=== PATIENT | male | born 1995 | race Caucasian/White ===

== ENCOUNTER 2018-10-24 12:02 | Emergency (ER) | payer OTHER, SELFPAY ==
[2018-10-24 12:03] VITALS: BP 137/87; PULSE 79; RESP 17; TEMP 37.1; O2SAT 97; BMI 34.1
--- NOTE | 2018-10-24 12:13 | RAD_ITS ---
STUDY: X-RAY - RIGHT HAND, ATTENTION INDEX FINGER REASON FOR EXAM: Male, 22 years old. Crushing injury to the distal aspect of the index finger with the bleeding. TECHNIQUE: 3 view(s) of the finger were obtained. COMPARISON: None. FINDINGS: Normal metacarpal head. Normal metacarpophalangeal joint. Normal proximal phalanx. Normal middle phalanx. Nondisplaced comminuted fracture of the tuft of the distal phalanx of the index finger with overlying soft tissue injury. Normal proximal interphalangeal joint. Normal distal interphalangeal joint. RAD/Finger(s) Min 2 Views IMPRESSION: Nondisplaced comminuted fracture of the distal tuft of the distal phalanx with overlying soft tissue injury. Electronically Signed: Hawk Carrasco, at 12:42 EDT , Service support ,
--- NOTE | 2018-10-24 12:14 | ED.VISSUMM ---
- ER Visit Summary Date of Service: 10/24/18 Chief Complaint: Finger injury History of Present Illness: The patient is a 22 M with a crush injury over the right index digit at work just prior to arrival. No other injury. Physical Examination: Otherwise normal exam there is a crush injury over the tuft of the distal phalanx. There is a nail and nailbed involvement, the nail is partially avulsed but is still resting on the nailbed in anatomic position. No tendon dysfunction. Emergency Department Course and Treatment: Patient is found to have a tuft fracture, by definition this is an open fracture. Ancef IM was given, patient will be placed on antibiotics he will follow-up with hand as well as employee health. He is told that his nail will fall out in either few days or 1 to 2 weeks, otherwise he needs wound care and follow-up he understands this. Tetanus was updated. Disposition: Discharge stable condition Impression: Open tuft fracture This note was generated with Pen[employer] dictation software. It may contain incorrect words, spelling, and punctuation that were not noted in review of the chart prior to signing ED Disposition - Plan for ED Patient: Disposition: Home or Assisted Living Instructions: ED Fx Finger Open Prescriptions: Cephalexin [Keflex] 500 mg PO [id number] #36 cap Referrals: Michele Larkin MD [STAFF PHYSICIAN] - 2 Days Additional Instructions: If you are unable to follow-up with plastic surgery return to the emergency department, he must follow-up in the next 3 to 4 days. Make sure you take all your antibiotics.
--- NOTE | 2018-10-24 12:19 | ED.DCSUM_ITS ---
- ER Visit Summary Date of Service: 10/24/18 Chief Complaint: Finger injury History of Present Illness: The patient is a 22 M with a crush injury over the right index digit at work just prior to arrival. No other injury. Physical Examination: Otherwise normal exam there is a crush injury over the tuft of the distal phalanx. There is a nail and nailbed involvement, the nail is partially avulsed but is still resting on the nailbed in anatomic position. No tendon dysfunction. Emergency Department Course and Treatment: Patient is found to have a tuft fracture, by definition this is an open fracture. Ancef IM was given, patient will be placed on antibiotics he will follow-up with hand as well as employee health. He is told that his nail will fall out in either few days or 1 to 2 weeks, otherwise he needs wound care and follow-up he understands this. Tetanus was updated. Disposition: Discharge stable condition Impression: Open tuft fracture This note was generated with [employer] dictation software. It may contain incorrect words, spelling, and punctuation that were not noted in review of the chart prior to signing ED Disposition - Plan for ED Patient: Disposition: Home or Assisted Living Instructions: ED Fx Finger Open Prescriptions: Cephalexin [Keflex] 500 mg PO [id number] #36 cap Referrals: Michele Larkin MD [STAFF PHYSICIAN] - 2 Days Additional Instructions: If you are unable to follow-up with plastic surgery return to the emergency department, he must follow-up in the next 3 to 4 days. Make sure you take all your antibiotics.
[2018-10-24] MEDS: Diphth,Pertuss(Acell),Tet Vac 0.5 ML Vial IM (12:35)
[2018-10-24 13:51] VITALS: BP 134/87; PULSE 88; RESP 16
== END 2018-10-24 13:53 | disposition home or self-care (01) ==
PROVIDERS: Emergency Provider Emergency Medicine
DX: S62.630B Displaced fracture of distal phalanx of right index finger, initial encounter for open fracture (principal); X58.XXXA Exposure to other specified factors, initial encounter; Y93.9 Activity, unspecified; Y92.9 Unspecified place or not applicable
CPT/HCPCS: 73140; 90715; 96372; 99284

== ENCOUNTER 2018-11-12 08:18 | Day surgery (SDC) | payer OTHER, SELFPAY ==
[2018-11-07 14:05] VITALS: BMI 32.8
--- NOTE | 2018-11-11 22:46 | HP.PCM_ITS ---
History and Physical Date of Admission: 11/12/18 HISTORY OF PRESENT ILLNESS 22 year old man presents with a crush injury right index finger that he sustained at work on 10/24/18. He went to the ED for evaluation. X-ray showed a nondisplaced comminuted fracture distal tuft of distal phalanx. The nail was partially avulsed. There was the presence of a subungual hematoma and associated nail bed injury. He was given a dose of IV Ancef. The right index finger was cleansed and splinted. He was discharged on Keflex. When I saw him last week, I changed his antibiotics to Doxycycline. At present, he has a low grade fever. He is back to work and doing light duty with restrictions that include no machines, one handed work, and no lifting. Patient is right hand dominant. I had recommended operative intervention for his injuries and the surgery has been approved by [facility]. He is scheduled for 11/12/18. PAST MEDICAL HISTORY None PAST SURGICAL HISTORY None ALLERGIES No Known Allergies MEDICATIONS doxycycline hyclate FAMILY HISTORY Arthritis SOCIAL HISTORY Smoking Status: Never smoker alcohol intake: never substance use type: does not use REVIEW OF SYSTEMS General - Denies fever, fatigue, and weight loss. Eyes - Denies cataracts and glaucoma. ENT - Denies nasal congestion and sore throat. Endocrine - Denies excessive thirst and urination. Skin - Denies suspicious lesions and skin cancer. Musculoskeletal - Denies joint pain, joint stiffness, weakness of muscles and joints, back pain, and arthritis. Has a distal tuft fracture distal phalanx right index finger with subungual hematoma and nail bed injury. Neuro - Denies headaches. Cardiovascular - Denies chest pain, fatigue, and shortness of breath with exertion. Psych - Denies anxiety and depression. Respiratory - Denies chronic cough and shortness of breath. Gastrointestinal - Denies nausea, vomiting, diarrhea, and constipation. Hematologic - Denies abnormal bruising and bleeding. Genitourinary - Denies hematuria and urinary frequency. PHYSICAL EXAMINATION General - Alert and Oriented. HEENT - PERRL. EOMI. Throat is clear. Neck - Supple and nontender. No cervical adenopathy. Lungs - Clear to auscultation. Heart - Regular rate and rhythm. Abdomen - Soft and nondistended. Extremities - FROM right upper extremity except for the index finger where he sustained a crush injury and associated distal phalanx fracture and nail bed injury. There is a subungual hematoma present. There is injury to eponychial fold. Tip is tender to palpation. He is able to flex and extend his finger with some limitation secondary to swelling. No axillary adenopathy. Radial pulses are palpable. Fingers are warm with good capillary refill. Patient is right hand dominant. Tip of index finger has decreased sensation to pin prick. Neuro - CN II-XII grossly intact. Psych - Normal mood and affect. ASSESSMENT 1. Nondisplaced comminuted open fracture distal tuft of distal phalanx right index finger. 2. Subungual hematoma right index finger. 3. Nail bed injury right index finger. 4. Crush injury right index finger. PLAN Continue the tip splint. Continue Doxycycline since there is increased risk of osteomyelitis. Recommend operative intervention to drain the subungual hematoma as an undrained hematoma increases risk of infection. Will proceed with a partial ostectomy to evaluate for osteomyelitis. Will evaluate the nail bed injury and repair it. If there is too much damage to the nail bed then a nail bed graft from another finger or a toe could be done. If greater than 50% of the nail bed is damaged, a better option would be excision of the nail bed complex and provide soft tissue coverage over the exposed bone with a two stage thenar flap or a cross finger flap and skin graft. The second stage would occur in 3 weeks and entail division and inset of the flap. The donor site may need to be skin grafted or a local skin flap may be needed for closure. Anticipate some stiffness after the division of the flap and would set him up with OT for range of motion exercises, strengthening, and edema management. The surgery has been approved by [facility]. It is scheduled for 11/12/18. Surgery will be done under general anesthesia with a possible surgical observation overnight stay in the hospital. Followup after the surgery. Patient was informed of the risks and complications of the procedure including alternatives to surgery. These were discussed with the patient personally. Patient voices understanding and wishes to proceed. Some of the risks and complications were included in a form from the [employer]. Some of the risks and complications that were discussed included but were not inclusive of failure to diagnose including symptom relief, pain, infection, numbness, stiffness, loss of digit, RSD (CRPS), need for further surgery, contracture, and wound healing problems.
[2018-11-12 08:47] VITALS: BP 125/76; PULSE 77; RESP 14; TEMP 37; O2SAT 96; BMI 34.2
--- NOTE | 2018-11-12 09:25 | TISS_PTH ---
PATIENT: SATINDER BERKOWITZ LOC: [facility] [place] U#:[id number] AGE/SX: 22/M ROOM: RE11/12/[address]: Dr. Michele Larkin MD : 1995 BED: DIS: 11/12/2018 SPEC #: [id number] RECD: 11/12/18 13:03 STATUS: YENI BUNN #: [id number] SANDER: 11/12/18 09:[address]: Michele Larkin DEPT: SURGICAL PATHOLOGY RECD BY: Radha Joiner ENTERED: 11/12/18 13:47 SP TYPE: Tissue Bx OT DR: No Primary Care Phys Tissues: A - TISSUE SURGICALLY REMOVED B - Bone of hand, NOS Procedures: Decalcification bone/plaque Surgery Specimen Level III HEADER OPERATION: Drainage subungual hematoma index finger, partial ostectomy PRE-OP DIAGNOSIS: Nondisplaced comminuted open fracture distal tuft of distal phalanx right index finger; subungual hematoma right index finger; nailbed injury right index finger; crush injury right index finger TISSUE SUBMITTED: A. Soft tissue right index finger, B. Bone right index finger MICROSCOPIC DIAGNOSIS A. Soft tissue right index finger: Hyperkeratotic skin, consistent with nail, fibroconnective tissue with acute and chronic inflammation, granulation tissue reaction, fibrinous material and blood clot consistent with hematoma. B. Bone right index finger: A piece of bone with focal area of nonviable bone and attached soft tissue with reactive changes. SILVANO:jc 11/15/18 MICROSCOPIC DESCRIPTION Slides are reviewed. GROSS DESCRIPTION A - Received in fixative is one container labeled with the patient's name and designated soft tissue right index finger. The specimen consists of one irregular fragment of light rice soft tissue that measures 1.5 x 1 x 01 cm. The specimen is totally submitted in one cassette. B - Received in fixative is one container labeled with the patient's name and designated bone right index finger. The specimen consists of an irregular fragment of rice bone measuring 0.5 x 0.2 x 0.1 cm. The specimen is totally submitted in one cassette after decalcification. / AM:jc 11/12/18 TC:5 CPT: 51759 x2, 26364
[2018-11-12] MEDS: Cefazolin 2 GM in 0.9% Normal Saline 100 ML IV (11:05)
[2018-11-12] MEDS: Mupirocin Ointment 22gm Tube 1 APPLIC (12:27)
[2018-11-12 12:40] VITALS: BP 125/76; BP 125/85; PULSE 91; RESP 16; TEMP 36.9; O2SAT 94
--- NOTE | 2018-11-12 12:41 | PCM.OPRPT ---
Report of Operation Date of Procedure: 11/12/18 Pre-Operative Diagnosis: 1. Nondisplaced comminuted open fracture distal tuft of distal phalanx right index finger. 2. Subungual hematoma right index finger. 3. Nail bed injury right index finger. 4. Crush injury right index finger. Post-Operative Diagnosis: Same. Surgery/Procedure Performed:: 1. Drainage subungual hematoma right index finger. 2. Partial ostectomy distal phalanx for osteomyelitis. 3. Complex repair stellate nail bed injury. Description of Surgical Findings:: 22 year old man presents with a crush injury right index finger that he sustained at work on 10/24/18. He went to the ED for evaluation. X-ray showed a nondisplaced comminuted fracture distal tuft of distal phalanx. The nail was partially avulsed. There was the presence of a subungual hematoma and associated nail bed injury. He was given a dose of IV Ancef. The right index finger was cleansed and splinted. He was discharged on Keflex. When I saw him last week, I changed his antibiotics to Doxycycline. At present, he has a low grade fever. He is back to work and doing light duty with restrictions that include no machines, one handed work, and no lifting. Patient is right hand dominant. I had recommended operative intervention for his injuries and the surgery has been approved by [facility]. Patient was informed of the risks and complications of the procedure including alternatives to surgery. These were discussed with the patient personally. Patient voices understanding and wishes to proceed. Some of the risks and complications were included in a form from the [employer]. Some of the risks and complications that were discussed included but were not inclusive of failure to diagnose including symptom relief, pain, infection, numbness, stiffness, loss of digit, RSD (CRPS), need for further surgery, contracture, and wound healing problems. Total tourniquet time - 59 minutes. puppy trainer: None Specimen's removed: 1. Right index finger tip soft tissue to Pathology and Microbiology. 2. Right index finger tip bone to Pathology and Microbiology. Drains: None. Estimated Blood Loss (mL): 2 ml. Description of Procedure: Patient was taken to OR in supine position and was placed under general anesthesia. The right upper extremity was prepped and draped in the usual fashion. A tourniquet was placed. SCD's were placed for DVT prophylaxis. Perioperative antibiotics were given intravenously. The right upper extremity was elevated and was wrapped with an Esmarch bandage as the tourniquet was elevated to 250 mmHg. Using xylocaine with epinephrine, a digital metacarpal block was infiltrated for postop pain relief. Under loupe magnification, I removed the nail plate. There was a congealed hematoma present that extended through the stellate nail bed injury and involved the distal phalanx. The hematoma was drained and the congealed portion of the hematoma was excised and debrided. Using an elevator, I elevated the remaining nail bed off the distal phalanx. Some loose pieces of bone were excised and debrided. Using a rongeur, I excised the distal portion of the distal phalanx to evaluate for osteomyelitis. A rasp was used to smooth out the bony edge. The stellate nail bed injury was swollen with presence of exudate which was excised and debrided. From the pressure of the subungual hematoma, there was some loss of nail bed and the bone was exposed. I shortened the nail bed a little bit to minimize a floppy finger tip. I wanted the soft tissue to be close to the bone to minimize this floppiness. By shortening the nail bed a little bit, I was able to repair the nail bed without having to resort to a nail bed graft. This complex nail bed repair was done with 5-0 Vicryl simple interrupted sutures. Since I was able to repair the nail bed, a two stage thenar flap will not be necessary at this time. I cleaned off any residual blood and debris from the nail plate and placed the nail plate back on the finger and underneath the eponychial fold. The nail plate was secured with 5-0 Nylon simple interrupted sutures. Half the soft tissue and half the bone was sent to Pathology for analysis to rule out carcinoma and to evaluate for osteomyelitis. Half the soft tissue and half the bone was sent to Microbiology for culture. A positive culture will necessitate antibiotic therapy. The tourniquet was released after 59 minutes. Hemostasis was obtained with gentle pressure and elevation. Antibiotic ointment was applied to the finger tip followed by Xeroform gauze and 2x2 gauze followed by 2 inch Randy wrap. A new alumafoam splint will be given to the patient to help with protecting the finger tip when bumped. With a bulky surgical dressing at present, he won't need the splint until after the first dressing change in the office. Patient tolerated the procedure well and was sent to PACU in satisfactory condition. Patient will be sent home on antibiotics and pain medication. He will keep his right hand elevated during the initial postop period. He will wear a plastic bag over his right hand when showering. Patient will followup in a week for a wound check and for discussion of the pathology report and for discussion of the Microbiology report. Will remove the sutures in 2-3 weeks. Depending on his degree of stiffness postop, may need OT for range of motion exercises, strengthening, and edema management. Grafts/Implants Used: None. - Complications None. - Admit VTE Documentation VTE Present on Admission: No VTE Mechan Device Prophylaxis: SCD's VTE Pharm Prophylaxis ordered?: No Code Visit Surgery Charges CPT - 38975 ICD-10 - S62.636B, S60.121A, S69.91xA, S67.190A 04957 S62.636B, S60.121A, S69.91xA, S67.190A 63123 S62.636B, S69.91xA, S60.121A, S67.190A
[2018-11-12 12:45] VITALS: BP 125/76; BP 130/72; PULSE 98; RESP 16; O2SAT 93
--- NOTE | 2018-11-12 12:45 | OP.PCM_ITS ---
Report of Operation Date of Procedure: 11/12/18 Pre-Operative Diagnosis: 1. Nondisplaced comminuted open fracture distal tuft of distal phalanx right index finger. 2. Subungual hematoma right index finger. 3. Nail bed injury right index finger. 4. Crush injury right index finger. Post-Operative Diagnosis: Same. Surgery/Procedure Performed:: 1. Drainage subungual hematoma right index finger. 2. Partial ostectomy distal phalanx for osteomyelitis. 3. Complex repair stellate nail bed injury. Description of Surgical Findings:: 22 year old man presents with a crush injury right index finger that he sustained at work on 10/24/18. He went to the ED for evaluation. X-ray showed a nondisplaced comminuted fracture distal tuft of distal phalanx. The nail was partially avulsed. There was the presence of a subungual hematoma and asso ciated nail bed injury. He was given a dose of IV Ancef. The right index finger was cleansed and splinted. He was discharged on Keflex. When I saw him last week, I changed his antibiotics to Doxycycline. At present, he has a low grade fever. He is back to work and doing light duty with restrictions that include no machines, one handed work, and no lifting. Patient is right hand dominant. I had recommended operative intervention for his injuries and the surgery has been approved by [facility]. Patient was informed of the risks and complications of the procedure including alternatives to surgery. These were discussed with the patient personally. Patient voices understanding and wishes to proceed. Some of the risks and complications were included in a form from the [employer]. Some of the risks and complications that were discussed included but were not inclusive of failure to diagnose including symptom relief, pain, infection, numbness, stiffness, loss of digit, RSD (CRPS), need for further surgery, contracture, and wound healing problems. Total tourniquet time - 59 minutes. production supv: None Specimen's removed: 1. Right index finger tip soft tissue to Pathology and Microbiology. 2. Right index finger tip bone to Pathology and Microbiology. Drains: None. Estimated Blood Loss (mL): 2 ml. Description of Procedure: Patient was taken to OR in supine position and was placed under general anesthesia. The right upper extremity was prepped and draped in the usual fashion. A tourniquet was placed. SCD's were placed for DVT prophylaxis. Perioperative antibiotics were given intravenously. The right upper extremity was elevated and was wrapped with an Esmarch bandage as the tourniquet was elevated to 250 mmHg. Using xylocaine with epinephrine, a digital metacarpal block was infiltrated for postop pain relief. Under loupe magnification, I removed the nail plate. There was a congealed hematoma present that extended through the stellate nail bed injury and involved the distal phalanx. The hematoma was drained and the congealed portion of the hematoma was excised and debrided. Using an elevator, I elevated the remaining nail bed off the distal phalanx. Some loose pieces of bone were excised and debrided. Using a rongeur, I excised the distal portion of the distal phalanx to evaluate for osteomyelitis. A rasp was used to smooth out the bony edge. The stellate nail bed injury was swollen with presence of exudate which was excised and debrided. From the pressure of the subungual hematoma, there was some loss of nail bed and the bone was exposed. I shortened the nail bed a little bit to minimize a floppy finger tip. I wanted the soft tissue to be close to the bone to minimize this floppiness. By shortening the nail bed a little bit, I was able to repair the nail bed without having to resort to a nail bed graft. This complex nail bed repair was done with 5-0 Vicryl simple interrupted sutures. Since I was able to repair the nail bed, a two stage thenar flap will not be necessary at this time. I cleaned off any residual blood and debris from the nail plate and placed the nail plate back on the finger and underneath the eponychial fold. The nail plate was secured with 5-0 Nylon simple interrupted sutures. Half the soft tissue and half the bone was sent to Pathology for analysis to rule out carcinoma and to evaluate for osteomyelitis. Half the soft tissue and half the bone was sent to Microbiology for culture. A positive culture will necessitate antibiotic therapy. The tourniquet was released after 59 minutes. Hemostasis was obtained with gentle pressure and elevation. Antibiotic ointment was applied to the finger tip followed by Xeroform gauze and 2x2 gauze followed by 2 inch Randy wrap. A new alumafoam splint will be given to the patient to help with protecting the finger tip when bumped. With a bulky surgical dressing at present, he won't need the splint until after the first dressing change in the office. Patient tolerated the procedure well and was sent to PACU in satisfactory condition. Patient will be sent home on antibiotics and pain medication. He will keep his right hand elevated during the initial postop period. He will wear a plastic bag over his right hand when showering. Patient will followup in a week for a wound check and for discussion of the pathology report and for discussion of the Microbiology report. Will remove the sutures in 2-3 weeks. Depending on his degree of stiffness postop, may need OT for range of motion exercises, strengthening, and edema management. Grafts/Implants Used: None. - Complications None. - Admit VTE Documentation VTE Present on Admission: No VTE Mechan Device Prophylaxis: SCD's VTE Pharm Prophylaxis ordered?: No Code Visit Surgery Charges CPT - 43821 ICD-10 - S62.636B, S60.121A, S69.91xA, S67.190A 61021 S62.636B, S60.121A, S69.91xA, S67.190A 92552 S62.636B, S69.91xA, S60.121A, S67.190A
--- NOTE | 2018-11-12 12:50 | PCM.DC ---
You will use the following diet at home:: No restrictions Discharge Activity: May not drive while taking narcotic pain medications., May Shower - wear plastic bag ove right hand when showering. May shower in (days): 1 - wear plastic bag over right hand when showering. May resume sexual activity in: No Restrictions Weight Bearing Status: Weight bearing as tolerated Lifting Restrictions: no lifting with right hand. Keep extremity elevated above heart level: Right Arm Call your doctor if your incision/area has: Continuous Slow Oozing, Sudden Increased Bleeding, Increased Pain/ Swelling, Increased Redness, Foul Smelling Discharge, Swelling at the incision site Call your doctor if you observe: Fever of 101 or Higher, Coldness, Increased Pain, Shortness of breath, Chest pain, Calf discomfort, Uncontrolled pain Suture Line Care: - - after dressing removed in the office, will apply antibiotic ointment to right index fingertip daily. Change Dressing in (Days):: 7 - will change dressing in office. Cleanse incision/area with: - - wear plastic bag over right hand when showering. Allergies/Adverse Reactions: Allergies No Known Allergies Allergy (Verified 11/11/18 15:38) Medications to take at Discharge Doxycycline 100 mg PO BID #28 cap 11/12/18 Oxycodone HCl/Acetaminophen [Percocet 5/325] 1 - 2 tab PO 4X/DAY PRN PRN 7 Days #50 tab 11/12/18 The following prescriptions were given: Oxycodone HCl/Acetaminophen [Percocet 5/325] 1 - 2 tab PO 4X/DAY PRN PRN 7 Days #50 tab PRN Reason: Pain Doxycycline 100 mg PO BID #28 cap Primary Care Physician: Care Physician,No Primary [Primary Care Provider] - Test Results: Test results from this visit will be discussed in further detail at your follow-up appointment, if applicable. Please Follow Up With: Michele Larkin MD When: one week. call [phone] for appt. Proposed Discharge Date: 11/12/18
--- NOTE | 2018-11-12 12:53 | DCINST_ITS ---
You will use the following diet at home:: No restrictions Discharge Activity: May not drive while taking narcotic pain medications., May Shower - wear plastic bag ove right hand when showering. May shower in (days): 1 - wear plastic bag over right hand when showering. May resume sexual activity in: No Restrictions Weight Bearing Status: Weight bearing as tolerated Lifting Restrictions: no lifting with right hand. Keep extremity elevated above heart level: Right Arm Call your doctor if your incision/area has: Continuous Slow Oozing, Sudden Increased Bleeding, Increased Pain/ Swelling, Increased Redness, Foul Smelling Discharge, Swelling at the incision site Call your doctor if you observe: Fever of 101 or Higher, Coldness, Increased Pain, Shortness of breath, Chest pain, Calf discomfort, Uncontrolled pain Suture Line Care: - - after dressing removed in the office, will apply antibiotic ointment to right index fingertip daily. Change Dressing in (Days):: 7 - will change dressing in office. Cleanse incision/area with: - - wear plastic bag over right hand when showering. Allergies/Adverse Reactions: Allergies No Known Allergies Allergy (Verified 11/11/18 15:38) Medications to take at Discharge Doxycycline 100 mg PO BID #28 cap 11/12/18 Oxycodone HCl/Acetaminophen [Percocet 5/325] 1 - 2 tab PO 4X/DAY PRN PRN 7 Days #50 tab 11/12/18 The following prescriptions were given: Oxycodone HCl/Acetaminophen [Percocet 5/325] 1 - 2 tab PO 4X/DAY PRN PRN 7 Days #50 tab PRN Reason: Pain Doxycycline 100 mg PO BID #28 cap Primary Care Physician: Care Physician,No Primary [Primary Care Provider] - Test Results: Test results from this visit will be discussed in further detail at your follow- up appointment, if applicable. Please Follow Up With: Michele Larkin MD When: one week. call [phone] for appt. Proposed Discharge Date: 11/12/18
[2018-11-12 12:59] VITALS: BP 122/74; BP 125/76; PULSE 93; RESP 18; TEMP 36.2; O2SAT 95
[2018-11-12 14:50] VITALS: BP 118/76; BP 125/76; PULSE 74; RESP 16; TEMP 36.6; O2SAT 96
[2018-11-12] MEDS: oxyCODONE 5 MG Tablet PO (15:07)
[2018-11-12] MEDS: Acetaminophen 325 MG Tablet PO (15:07)
== END 2018-11-12 15:20 | disposition home or self-care (01) ==
LOC: SDC 08:18 → AC 08:18
PROVIDERS: Referring Provider Surgery; Visit Provider Surgery
PROC: (CPT 15574; principal; 2018-11-12 09:10)
DX: S62.660B Nondisplaced fracture of distal phalanx of right index finger, initial encounter for open fracture (principal); W23.0XXA Caught, crushed, jammed, or pinched between moving objects, initial encounter; Y93.9 Activity, unspecified; Y92.89 Other specified places as the place of occurrence of the external cause; Y99.0 Civilian activity done for income or pay; S60.121A Contusion of right index finger with damage to nail, initial encounter; S67.190A Crushing injury of right index finger, initial encounter; R50.9 Fever, unspecified
CPT/HCPCS: 11760; 26236; 87070; 87075; 87077; 87102; 87106; 87176; 87186; 87205; 87206; 88304; 88305; 88311; J7120; J2405

== ENCOUNTER → 2018-11-26 | Outpatient (CLI) | payer OTHER, SELFPAY ==
[2018-11-19 09:03] VITALS: BMI 34.2
[2018-11-26 17:50] LABS: AST(SGOT) 19 U/L (15-37); Alanine Aminotransfer ALT/SGPT 36 U/L (16-61); Albumin, Serum 3.9 g/dL (3.2-5.0); Alkaline Phosphatase 93 U/L (45-117); Anion Gap 9 (5-15); BUN 13 mg/dL (7-18); BUN/Creat Ratio 11.8 RATIO (10-20); Calcium,Total 9.1 mg/dL (8.5-10.1); Chloride 104 mmol/L (98-107); EST Glomerular Filtration Rate 90 mL/min (>60); Est Glom Filt Rate - Afr Amer 109 mL/min (>60); Glucose 90 mg/dL (74-106); Protein, Total 7.9 g/dL (6.4-8.2); Sodium Level 141 mmol/L (136-145)
== END | disposition home or self-care (01) ==
LOC: MTLAB 16:14
PROVIDERS: Referring Provider Nurse Practitioner Family; Visit Provider Nurse Practitioner Family
DX: S67.190A Crushing injury of right index finger, initial encounter (principal); S69.91XA Unspecified injury of right wrist, hand and finger(s), initial encounter; S60.121A Contusion of right index finger with damage to nail, initial encounter; S62.630B Displaced fracture of distal phalanx of right index finger, initial encounter for open fracture
CPT/HCPCS: 36415; 80053

== ENCOUNTER 2018-12-17 08:30 | Outpatient (RCR) | payer OTHER, SELFPAY ==
[2018-11-13 14:54] VITALS: BMI 34.2
--- NOTE | 2018-11-21 13:25 | HP.OTEVAL ---
Patient's Visit Information SATINDER BERKOWITZ is a 23 year old M, referred to Occupational Therapy by Michele Larkin MD, with a diagnosis of R distal Fx of IF. Date of Evaluation: 11/18/18 Occupational Therapist: Morelia Cardenas, OTR/Kade, CHT - Subjective Subjective: Pt referred to OT due to Disp Fx RT IF. Pt states he smashed R IF between two pieces of metal at work- reports distal fx of finger- surgery 11/12/18 and they took the nail bed off for debridement. Pt states he has appt w/ surgeon on 11/19/18- he was told to keep gauze on finger for 1 week post surgery. He was given splint to take back to surgeon but did not have splint with him. Precautions- no lifting/use of R hand. Pt came in w/ finger wrapped in gauze. 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 Pt reports likes to go fishing. - Pain R IF finger 2 - Objective Objective/Observation: Patient had finger wraped in gauze. Patient reported he was not to remove gauze for 1 week post surgery. When OT unwrapped-there was ointment, possible stitching and other gauze the DIP was wrapped with. Due to patient returning to surgeon 11/19/18- therapist did not unwrap 2nd gauze. - ROM MP: R IF: ext 0; flex: 60 PIP: R IF: ext 0; flex 65 DIP: DNT ROM Comments: Other fingers/joints in R hand WFL. No difficulties bending straightening other fingers or wrist. 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 Goal:: Pt will improve functional ROM to WFL in order to complete daily activities and return to work. Goal:: Pt will demonstrate edema control measures as instructed by OT, as demonstrated by reduced edema/swelling in R hand as compared to L hand in order to complete functional activities. Goal:: Pt will complete UB/LB dressing tasks including manipulation of fasteners independently by d/c. Goal:: Pt will complete light food prep (ability to use utensils/knife, etc.) w/ good bilateral coordination skills independently by d/c. - Rehabilitation General Assessment: Pt referred to OT due to R IF distal fx. Patient returning to surgeon 11/19/18. Patient told not to use R hand for any activities. Patient limited in ROM and strength in R hand due to diagnosis. Patient does not have any other limiting factors other than referred diagnosis. OT will continue to see patient to focus on ROM, wound/scar care, strength, and functional tasks and patient continues to heal and w/ surgeons POC. Rehabilitation Potential: Excellent - Anticipated Interventions Anticipated Interventions: A/AAROM/PROM, Strengthening, Edema Control, Scar Care, Desensitization, Wound Care, Modalities, Orthoses, Fine Motor Coord/Ti, ADL Training, Home Program - Visit Plan Frequency: 2x /Week Duration: 4 Weeks General Plan: Patient will receive OT 1-2X/week for 4-6 weeks to monitor progress of healing structures and assist will increasing ROM and strength and decreasing pain and edema in additional to following guidelines instructed in POC established by surgeon. TEXT: Thank you for the opportunity to evaluate your patient. For Medicare and Medicare HMO plans, please review the plan of care and approve it. It will need to be FAXED BACK to us at [phone] for Medicare purposes. Please let me know if there are questions or concerns regarding this plan of care. Physician Signature: Date:
--- NOTE | 2018-12-09 15:27 | HP.OTEVAL ---
Patient's Visit Information SATINDER BERKOWITZ is a 23 year old M, referred to Occupational Therapy by Michele Larkin MD, with a diagnosis of R distal Fx of IF. Date of Evaluation: 11/18/18 Occupational Therapist: Amparo Kiser - Subjective Subjective: Pt referred to OT due to Disp Fx RT IF. Pt states he smashed R IF between two pieces of metal at work- reports distal fx of finger- surgery 11/12/18 and they took the nail bed off for debridement. Pt states he has appt w/ surgeon on 11/19/18- he was told to keep gauze on finger for 1 week post surgery. He was given splint to take back to surgeon but did not have splint with him. Precautions- no lifting/use of R hand. Pt came in w/ finger wrapped in gauze. 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 Pt reports likes to go fishing. - Pain R IF finger 1 - Objective Objective/Observation: Patient had finger wraped in gauze. Patient reported he was not to remove gauze for 1 week post surgery. When OT unwrapped-there was ointment, possible stitching and other gauze the DIP was wrapped with. Due to patient returning to surgeon 11/19/18- therapist did not unwrap 2nd gauze. - ROM MP: R IF: ext 0; flex: 60 PIP: R IF: ext 0; flex 65 DIP: DNT ROM Comments: Other fingers/joints in R hand WFL. No difficulties bending straightening other fingers or wrist. 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 Goal:: Pt will improve functional ROM to WFL in order to complete daily activities and return to work. Goal:: Pt will demonstrate edema control measures as instructed by OT, as demonstrated by reduced edema/swelling in R hand as compared to L hand in order to complete functional activities. Goal:: Pt will complete UB/LB dressing tasks including manipulation of fasteners independently by d/c. Goal:: Pt will complete light food prep (ability to use utensils/knife, etc.) w/ good bilateral coordination skills independently by d/c. - Rehabilitation General Assessment: Pt referred to OT due to R IF distal fx. Patient returning to surgeon 11/19/18. Patient told not to use R hand for any activities. Patient limited in ROM and strength in R hand due to diagnosis. Patient does not have any other limiting factors other than referred diagnosis. OT will continue to see patient to focus on ROM, wound/scar care, strength, and functional tasks and patient continues to heal and w/ surgeons POC. Rehabilitation Potential: Excellent - Anticipated Interventions Anticipated Interventions: A/AAROM/PROM, Strengthening, Edema Control, Scar Care, Desensitization, Wound Care, Modalities, Orthoses, Fine Motor Coord/Ti, ADL Training, Home Program - Visit Plan Frequency: 2x /Week Duration: 4 Weeks General Plan: Patient will receive OT 1-2X/week for 4-6 weeks to monitor progress of healing structures and assist will increasing ROM and strength and decreasing pain and edema in additional to following guidelines instructed in POC established by surgeon. TEXT: Thank you for the opportunity to evaluate your patient. For Medicare and Medicare HMO plans, please review the plan of care and approve it. It will need to be FAXED BACK to us at [phone] for Medicare purposes. Please let me know if there are questions or concerns regarding this plan of care. Physician Signature: Date:
--- NOTE | 2019-01-08 16:13 | HP.OTDCSUM ---
HP - OT D/C Summary It has been my pleasure to treat SATINDER BERKOWITZ under orders from Michele Larkin MD, for the diagnosis of R distal Fx of IF for a total of 9 visit(s). Please see the following information for a summary of their discharge status. - Overall Improvement % Improvement: 95 - Objective Objective/Function: pt demo with PIP 0/95. DIP 0/65. no concners with pts ROM. right information services consultant strength 65# left information services consultant strength 67#. 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 Goal:: Pt will improve functional ROM to WFL in order to complete daily activities and return to work. Goal:: Pt will demonstrate edema control measures as instructed by OT, as demonstrated by reduced edema/swelling in R hand as compared to L hand in order to complete functional activities. Goal:: Pt will complete UB/LB dressing tasks including manipulation of fasteners independently by d/c. Goal:: Pt will complete light food prep (ability to use utensils/knife, etc.) w/ good bilateral coordination skills independently by d/c. - Plan Plan: pt to return to dr. - D/C Information If there are questions or concerns regarding this patient's occupational therapy, please fell free to call me at [phone]. Thank you for the referral of this patient. Sincerely, Morelia Cardenas, OTR/L, CHT
== END 2018-12-17 19:00 | disposition home or self-care (01) ==
LOC: OT 08:30
PROVIDERS: Referring Provider Surgery; Visit Provider Surgery
DX: S62.630D Displaced fracture of distal phalanx of right index finger, subsequent encounter for fracture with routine healing (principal); S60.121D Contusion of right index finger with damage to nail, subsequent encounter; S69.91XD Unspecified injury of right wrist, hand and finger(s), subsequent encounter; S67.190D Crushing injury of right index finger, subsequent encounter
CPT/HCPCS: 97110; 97165; 97530